=== PATIENT | male | born 1950 | race Caucasian/White ===

== ENCOUNTER → 2017-04-11 | Outpatient (CLI) | payer MEDICARE, BC ==
[2017-04-11 08:27] LABS: ALT 32 U/L (21-72); AST 24 U/L (17-59); Cholesterol 174 mg/dL (<200); Creatine Kinase 90 U/L (55-170); HDL Cholesterol 51 mg/dL (40-60); Triglycerides 141 mg/dL (<150)
== END | disposition home or self-care (01) ==
LOC: LABWHC1 07:27
PROVIDERS: ATTEND Internal Medicine Cardiovascular Disease
DX: E78.2 Mixed hyperlipidemia (principal)
CPT/HCPCS: 36415; 80061; 82550; 84450; 84460

== ENCOUNTER → 2018-04-28 | Outpatient (CLI) | payer MEDICARE, BC ==
[2018-04-28 10:33] LABS: Basophils % (A) 0 %; Eosinophils # (A) 0.2 k/uL (0-0.7); Eosinophils % (A) 3 %; HGB 16.3 gm/dL (13.0-17.5); Lymphocytes # (A) 2.3 k/uL (1.0-4.8); Lymphocytes % (A) 33 %; MCH 31.4 pg (25.0-35.0); MCHC 33.4 g/dL (31.0-37.0); MCV 94.2 fL (80.0-100.0); Monocytes # (A) 0.6 k/uL (0-1.0); Monocytes % (A) 8 %; Neutrophils # (A) 3.7 k/uL (1.3-7.7); Neutrophils % (A) 53 %; Platelet Count 191 k/uL (150-450); RDW 13.7 % (11.5-15.5); WBC 6.9 k/uL (3.8-10.6)
[2018-04-28 11:10] LABS: ALT 32 U/L (21-72); AST 29 U/L (17-59); Albumin 4.2 g/dL (3.5-5.0); Alkaline Phosphatase 111 U/L (38-126); Anion Gap 7 mmol/L; Blood Urea Nitrogen 14 mg/dL (9-20); Calcium 9.6 mg/dL (8.4-10.2); Carbon Dioxide 29 mmol/L (22-30); Chloride 110 mmol/L (98-107); Cholesterol 179 mg/dL (<200); Glucose 101 mg/dL (74-99); HDL Cholesterol 53 mg/dL (40-60); LDL Cholesterol,Calculated 103 mg/dL (0-99); Potassium 5.2 mmol/L (3.5-5.1); Sodium 146 mmol/L (137-145); Total Bilirubin 0.5 mg/dL (0.2-1.3); Total Protein 7.4 g/dL (6.3-8.2); Triglycerides 114 mg/dL (<150)
[2018-04-28 11:24] LABS: T4, Free (Free Thyroxine) 1.18 ng/dL (0.78-2.19)
[2018-04-28 11:38] LABS: Prostate Specific Antigen 7.58 ng/mL (0.00-4.00)
== END | disposition home or self-care (01) ==
LOC: LABWHC1 08:00
PROVIDERS: ATTEND Family Medicine
DX: Z00.00 Encounter for general adult medical examination without abnormal findings (principal); E78.5 Hyperlipidemia, unspecified; I10 Essential (primary) hypertension
CPT/HCPCS: 36415; 80053; 80061; 84153; 84439; 84443; 85025; 86803

== ENCOUNTER 2018-07-13 10:26 | Observation (INO) | payer MEDICARE, BC ==
--- NOTE | 2018-07-13 11:32 | ED ---
General Adult HPI - General Chief complaint: Chest Pain Stated complaint: Chest injury Time Seen by Provider: 07/13/18 11:15 Source: patient, RN notes reviewed Mode of arrival: ambulatory Limitations: no limitations - History of Present Illness Initial comments: Patient is a pleasant 68-year-old male presenting to the emergency Department with complaints of chest injury. Patient states 2 days ago he was willing a candy with an old electric range on it. Patient states while going down the steps and kind of got away from him and pulled him down. Patient states this did pull the right side of his chest. Patient states following this he did have somewhat of a fall and believes he likely struck his right chest on the range or side of the steps. Patient is having discomfort of the right lateral ribs. Discomfort does increase with deep breaths and movement. Otherwise no difficulty breathing. No other chest pain. Patient denies any concerns for heart problems. Patient denies any abdominal pain or any other area of injury. - Related Data Home Medications Medication Instructions Recorded Confirmed Aspirin 81 mg PO DAILY 12/20/14 07/13/18 Doxazosin [Cardura] 4 mg PO DAILY 12/20/14 07/13/18 Metoprolol Tartrate [Lopressor] 100 mg PO BID 12/20/14 07/13/18 Simvastatin [Zocor] 40 mg PO HS 12/20/14 07/13/18 Tamsulosin [Flomax] 0.4 mg PO BID 12/20/14 07/13/18 Warfarin [Coumadin] 1 mg PO SUTUWETHSA 12/20/14 07/13/18 amLODIPine BESYLATE/BENAZEPRIL 1 cap PO BID 12/20/14 07/13/18 [Amlodipine-Benazepril 10-20 mg] Warfarin [Coumadin] 2 mg PO MOFR 02/17/15 07/13/18 Loratadine [Claritin] 10 mg PO DAILY 07/03/16 07/13/18 Previous Rx's Medication Instructions Recorded traMADol HCl [Ultram] 50 mg PO Q6H PRN #40 tab 07/09/16 Allergies Allergy/AdvReac Type Severity Reaction Status Date / Time No Known Allergies Allergy Verified 07/13/18 11:01 Review of Systems ROS Statement: Those systems with pertinent positive or pertinent negative responses have been documented in the HPI. ROS Other: All systems not noted in ROS Statement are negative. Constitutional: Denies: fever Eyes: Denies: eye pain ENT: Denies: ear pain Respiratory: Denies: cough, dyspnea Cardiovascular: Reports: as per HPI Endocrine: Denies: fatigue Gastrointestinal: Denies: abdominal pain Genitourinary: Denies: dysuria Musculoskeletal: Denies: back pain Skin: Denies: rash Neurological: Denies: headache Past Medical History Past Medical History: Atrial Fibrillation, Blood Disorder, Coronary Artery Disease (CAD), Deep Vein Thrombosis (DVT), Hyperlipidemia, Hypertension, Myocardial Infarction ([place]), Pulmonary Embolus (PE) Additional Past Medical History / Comment(s): bilateral PE/ DVT 01/08/2012, BPH, Last Myocardial Infarction Date:: 2003 History of Any Multi-Drug Resistant Organisms: None Reported Past Surgical History: Cholecystectomy, Coronary Bypass/CABG, Heart Catheterization, Heart Catheterization With Stent, Joint Replacement, Orthopedic Surgery, Prostate Surgery Additional Past Surgical History / Comment(s): 07/08/16 total L knee arthroplasty. Other surgical hx: CABG X3, BX OF PROSTATE x 2-benign, R knee arthroscopy, COLONOSCOPY Past Anesthesia/Blood Transfusion Reactions: No Reported Reaction Date of Last Stent Placement:: 05/02/16 Past Psychological History: No Psychological Hx Reported Smoking Status: Former smoker Past Alcohol Use History: Occasional Past Drug Use History: None Reported - Past Family History Father Family Medical History: Coronary Artery Disease (CAD), Dementia, Diabetes Mellitus Additional Family Medical History / Comment(s): Father of dementia at the age of 74 yrs. Mother Family Medical History: Liver Disease Additional Family Medical History / Comment(s): Mother of biliary cirrhosis at the age of 37yrs. Sister(s) Family Medical History: Cancer General Exam Limitations: no limitations General appearance: alert, in no apparent distress Head exam: Present: atraumatic Eye exam: Present: normal appearance Neck exam: Present: normal inspection. Absent: tenderness Respiratory exam: Present: normal lung sounds bilaterally, chest wall tenderness (Right lateral chest beneath the axilla) Cardiovascular Exam: Present: regular rate, normal rhythm GI/Abdominal exam: Present: soft. Absent: distended, tenderness, guarding Extremities exam: Present: normal inspection Neurological exam: Present: alert Psychiatric exam: Present: normal affect, normal mood Skin exam: Present: normal color Course Vital Signs 10/01/18 10:31 Temperature 98.3 F Pulse Rate 73 Respiratory 22 Rate Blood Pressure 124/81 O2 Sat by Pulse 97 Oximetry - Reevaluation(s) Reevaluation #1: 07/13/18 12:17 Case was discussed with Dr. Montenegro, who will admit. He does request consult with anesthesia and pulmonary. Case was earlier discussed with radiologist. Computed tomography scan was ordered. Medical Decision Making - Radiology Data Radiology results: image reviewed (Chest x-ray does show small apical pneumothorax. Possible Colome pneumothorax at the right base. Rib fractures 5 through 8.) Disposition Clinical Impression: Traumatic pneumothorax, Rib fractures Disposition: ADMITTED IP TO THIS HOSP Is patient prescribed a controlled substance at d/c from ED?: No Referrals: Ganesh Cota Jr, DO [Primary Care Provider] - 1-2 days Decision Time: 12:18
--- NOTE | 2018-07-13 12:05 | XR ---
EXAMINATION TYPE: XR ribs RT w pa chest xray DATE OF EXAM: 07/13/2018 COMPARISON: NONE HISTORY: Pain TECHNIQUE: Single view of the chest 4 views of the ribs are submitted. FINDINGS: There are rib fractures of right ribs 5 through 8 anterolaterally. There is right-sided pneumothorax with suspected right basilar Collins pneumothorax. Lucency at the right lung base is likely related to pneumothorax rather than pneumoperitoneum. Pneumothorax estimated at approximately 15%. Right basilar infiltrate or contusion. There is evidence of cardiomegaly. Chronic and senescent parenchymal changes noted. IMPRESSION: 1. Right-sided rib fractures with right-sided pneumothorax. Discussed with the physician at the time of exam completion.
[2018-07-13] MEDS ORDERED: NALOXONE 0.4 MG/ML 1 ML VIAL IV PRN (12:18)
[2018-07-13] MEDS ORDERED: ACETAMINOPHEN TAB 325 MG TAB PO PRN (12:18)
[2018-07-13] MEDS ORDERED: IBUPROFEN 400 MG TAB PO PRN (12:18)
[2018-07-13] MEDS ORDERED: MORPHINE SULFATE 4 MG/ML SYRINGE IV PRN (12:18)
--- NOTE | 2018-07-13 12:40 | CT ---
EXAMINATION TYPE: CT chest wo con DATE OF EXAM: 07/13/2018 COMPARISON: Prior CT chest 12/31/2011, chest x-ray 07/13/2018 HISTORY: Pneumothorax, rib fracture CT DLP: 651 mGycm. Automated Exposure Control for Dose Reduction was Utilized. TECHNIQUE: CT scan of the thorax is performed without IV contrast. FINDINGS: LUNGS: Minimal right-sided pneumothorax present at the base of the right hemithorax, there is associa edmund small effusion, atelectasis. MEDIASTINUM: Lack of IV contrast is noted to limit evaluation for mediastinal and especially hilar ad enopathy. There are no definitive greater than 1 cm hilar or mediastinal lymph nodes. There are michael nary artery calcifications present. No cardiomegaly or pericardial effusion is seen. OTHER: Nondisplaced rib fractures of the right fifth through eighth ribs. Patient is post median ster notomy. IMPRESSION: Right-sided rib fractures are nondisplaced. Only minimal pneumothorax noted. Postop tabares es. Noncontrast exam.
[2018-07-13] MEDS: SODIUM CHLORIDE 0.9% 1,000 ML IV SCH ×2 (12:57→21:17)
[2018-07-13 13:21] LABS: Basophils % (A) 0 %; Eosinophils # (A) 0.2 k/uL (0-0.7); Eosinophils % (A) 2 %; HCT 47.2 % (39.0-53.0); HGB 15.1 gm/dL (13.0-17.5); Lymphocytes # (A) 1.7 k/uL (1.0-4.8); Lymphocytes % (A) 23 %; MCH 30.5 pg (25.0-35.0); MCV 95.2 fL (80.0-100.0); Mean Platelet Volume 7.7; Monocytes # (A) 0.5 k/uL (0-1.0); Monocytes % (A) 7 %; Neutrophils # (A) 4.9 k/uL (1.3-7.7); Neutrophils % (A) 67 %; Platelet Count 165 k/uL (150-450); RBC 4.96 m/uL (4.30-5.90); RDW 13.3 % (11.5-15.5); WBC 7.4 k/uL (3.8-10.6)
[2018-07-13] MEDS ORDERED: INFLUENZA VACCINE (6 MOS+) 60 MCG/0.5 ML SYRINGE IM ONE (13:25)
[2018-07-13 13:27] LABS: Anion Gap 8 mmol/L; Blood Urea Nitrogen 14 mg/dL (9-20); Calcium 9.2 mg/dL (8.4-10.2); Carbon Dioxide 26 mmol/L (22-30); Chloride 108 mmol/L (98-107); Glucose 102 mg/dL (74-99); Potassium 4.5 mmol/L (3.5-5.1); Sodium 142 mmol/L (137-145)
[2018-07-13 16:17] LABS: INR 2.4 (<1.2)
--- NOTE | 2018-07-13 16:46 | P.PAINCN ---
History of Present Illness - Reason for Consult Consult date: 07/13/18 - History of Present Illness This is a 68-year-old male who was admitted to [facility] with the complaint of right chest nondisplaced rib fractures, from T5 to T8, right- sided pneumothorax ,patient complaining of some pain which managed with IV morphine and, Ultram 50 mg every 6 hours, patient had no shortness of breath, no difficulty breathing, no discoloration, and there is no need for supplemental oxygen, oxygen saturation more than 96% on room air Past Medical History Past Medical History: Atrial Fibrillation, Coronary Artery Disease (CAD), Chest Pain / Angina, Deep Vein Thrombosis (DVT), GERD/Reflux, Hyperlipidemia, Hypertension, Myocardial Infarction ([place]), Osteoarthritis (OA), Pulmonary Embolus (PE) Additional Past Medical History / Comment(s): bilateral PE/ R leg DVT 01/08/2012 , BPH, arthritis L knee with total knee arthroplasty, sinus problems. Last Myocardial Infarction Date:: 2003 History of Any Multi-Drug Resistant Organisms: None Reported Past Surgical History: Cholecystectomy, Coronary Bypass/CABG, Heart Catheterization, Heart Catheterization With Stent, Joint Replacement, Orthopedic Surgery, Prostate Surgery Additional Past Surgical History / Comment(s): 07/08/16 total L knee arthroplasty, 2004 CABG X3, BX OF PROSTATE x 2-benign, R knee arthroscopy, COLONOSCOPY, EGD Past Anesthesia/Blood Transfusion Reactions: No Reported Reaction Date of Last Stent Placement:: 05/02/16 Smoking Status: Former smoker - Past Family History Father Family Medical History: Coronary Artery Disease (CAD), Dementia, Diabetes Mellitus Additional Family Medical History / Comment(s): Father of dementia at the age of 74 yrs. Mother Family Medical History: Liver Disease Additional Family Medical History / Comment(s): Mother of biliary liver cirrhosis at the age of 37yrs. Sister(s) Family Medical History: Cancer Medications and Allergies Home Medications Medication Instructions Recorded Confirmed Type Aspirin 81 mg PO DAILY 12/20/14 07/13/18 History Doxazosin [Cardura] 4 mg PO DAILY 12/20/14 07/13/18 History Metoprolol Tartrate [Lopressor] 100 mg PO BID 12/20/14 07/13/18 History Simvastatin [Zocor] 40 mg PO HS 12/20/14 07/13/18 History Tamsulosin [Flomax] 0.4 mg PO BID 12/20/14 07/13/18 History Warfarin [Coumadin] 1 mg PO SUTUWETHSA 12/20/14 07/13/18 History amLODIPine BESYLATE/BENAZEPRIL 1 cap PO BID 12/20/14 07/13/18 History [Amlodipine-Benazepril 10-20 mg] Warfarin [Coumadin] 2 mg PO MOFR 02/17/15 07/13/18 History Loratadine [Claritin] 10 mg PO DAILY 07/03/16 07/13/18 History traMADol HCl [Ultram] 50 mg PO Q6H PRN #40 tab 07/09/16 07/13/18 Rx Allergies Allergy/AdvReac Type Severity Reaction Status Date / Time No Known Allergies Allergy Verified 07/13/18 11:01 Physical Exam Vitals: Vital Signs Temp Pulse Pulse Resp BP BP Pulse Ox 07/13/18 16:00 64 18 07/13/18 13:39 97.6 F 64 18 141/79 96 07/13/18 13:16 98.8 F 69 18 129/65 98 07/13/18 10:31 98.3 F 73 22 124/81 97 Intake and Output 07/13/18 07/13/18 07/13/18 06:59 14:59 22:59 Other: # Voids 1 Weight 106.594 kg Physical Examinations : 1-Constitutiona : Cooperative , not in acute distress . 2-HEENT : nech ; supple , no Lymphadenopathy , normal thyroid size . eyes : no ptosis , no icterus, no photophobia . ENT : normal of hearing , normal oropharynx , no Thrush . 3- Respiratory : Chest clear to auscultations Bilaterally , no wheezing , no Rhonchi , tenderness over the right side chest wall . 4- Cardiovascular : regular rate and rhythem , S1 , S2 , no S3 , no S4. 5- Gastrointestinal : abdomen soft no tenderness , bowel sounds , no organomegally . 6- Genitourinary : Defferred . 7- neurologic : Cranial nerve II to XII intact , no focal neurological deffecit . 8-psychatric : alert , oriented X 3 , appropriate affect , intact judgment and insight . 9-Lymphatic : no Lymphadenopathy . 10- musculoskeltal : motor stregnth in the deltoid and biceps, normal right side , normal Left side Results CBC & Chem 7: 07/13/18 12:56 07/13/18 12:56 Labs: Abnormal Lab Results - Last 24 Hours (Table) 07/13/18 07/13/18 Range/Units 12:56 15:25 PT 22.0 H (9.0-12.0) sec INR 2.4 H (<1.2) Chloride 108 H (98-107) mmol/L Glucose 102 H (74-99) mg/dL Comments: Computed tomography scan of chest showed right side T5 to T8, nondisplaced rib fractures, Assessment and Plan Plan: Assessment and plan= right chest wall pain secondary to right side rib fractures from T5 to T8 Recommend continue the current dictation Ultram 50 mg every 8 hours for pain and continue morphine 4 mg every 4 hours when necessary,, patient could benefit from Lidoderm patch 5% to be applied to the chest wall painful area, Recommend discontinue Motrin, and start Celebrex because combination between Motrin on Coumadin increases, GI bleeding She is not a good candidate to have epidural analgesia ,because he is on Coumadin Time with Patient: Greater than 30 PQRS Measure Charge Sheet PQRS Narrative: Smoking Status Former smoker Do You Want the Pneumonia No Vaccine AT THIS TIME? Blood Pressure [Right Arm] 141/79 Blood Pressure 129/65 Pain Intensity [Right Chest] 4 Pain Intensity 2 Pain Scale Used Numeric (1 - 10) Scale Used Numeric (1 - 10) Home Medications: Ambulatory Orders Aspirin 81 mg PO DAILY 12/20/14 Doxazosin [Cardura] 4 mg PO DAILY 12/20/14 Metoprolol Tartrate [Lopressor] 100 mg PO BID 12/20/14 Simvastatin [Zocor] 40 mg PO HS 12/20/14 Tamsulosin [Flomax] 0.4 mg PO BID 12/20/14 Warfarin [Coumadin] 1 mg PO SUTUWETHSA 12/20/14 amLODIPine BESYLATE/BENAZEPRIL [Amlodipine-Benazepril 10-20 mg] 1 cap PO BID 07/27 Warfarin [Coumadin] 2 mg PO MOFR 02/17/15 Loratadine [Claritin] 10 mg PO DAILY 07/03/16 traMADol HCl [Ultram] 50 mg PO Q6H PRN #40 tab 07/09/16
[2018-07-13] MEDS ORDERED: LIDOCAINE 5% PATCH TOPICAL SCH (17:00)
[2018-07-13] MEDS: MELOXICAM 7.5 MG TAB PO SCH (18:11)
--- NOTE | 2018-07-13 19:34 | CONS ---
CONSULTATION DATE OF SERVICE: 07/13/2018. REASON FOR CONSULT: Multiple rib fracture, contusion and small pneumothorax on the right side. HISTORY OF PRESENTING ILLNESS: Mr. Cy Calvert is a pleasant 68-year-old male with somewhat complex past medical history. He presented with 2-day history of severe chest pain which was getting worse. Symptoms started about 48 hours ago when he was trying to move a range on a cart and taking them down the stairs and tripped. He is not really sure if the range landed on his chest or he hit the staircase, but developed severe pain, able to handle the pain until earlier this morning, eventually decided to come into the hospital for pain. He was evaluated in the emergency department with a chest x-ray and rib x-ray. He was found to have multiple rib fractures with a small right-sided pneumothorax. The rib x- rays were reviewed. The CT scan of the chest was reviewed as well, which revealed right-sided multiple rib fractures involving 5th, 6th, 7th and 8th ribs. A small pneumothorax on the right side about 15% with a small effusion. The patient is being monitored and observed on the 4th floor. The patient does have some complaint of pleuritic chest pain. PAST MEDICAL HISTORY: Significant for DVT, PE in 2011, history of coronary artery disease and CABG in early 1999. Chronic atrial fibrillation. Coronary artery disease, dyslipidemia, hypertension, hypertensive cardiovascular disease. PAST SURGICAL HISTORY: Significant for cholecystectomy, CABG, history of cardiac cath and angiogram, history of prostate biopsy, right knee arthroscopic surgery, colonoscopy, left knee arthroplasty. ALLERGIES: Include no known drug allergy. MEDICATIONS: At home include aspirin 81 mg daily. Cardura 4 mg daily. Claritin 10 mg daily. Lopressor 100 mg 3 times a day. Zocor 40 mg daily. Flomax 0.4 mg 2 times a day. Coumadin 1 mg on Friday, Friday, Friday, , and Friday and 2 mg on Friday and Friday. Amlodipine with benazepril 10/20 one tablet 2 times a day. Ultram is 50 mg 4 times a day. Current medications in the hospital include the above with Coumadin being held. The patient is on lidocaine patch along with Extra Strength Tylenol. FAMILY HISTORY AND SOCIAL HISTORY: Otherwise unremarkable and noncontributory. The patient used to smoke heavily, however, stopped several years ago. REVIEW OF SYSTEMS: DENTAL INSURANCE COORDINATOR: Denies any seizure, likely loss of consciousness, hemiparesis. CARDIORESPIRATORY: Denies any cough or sputum production. Does have some pain on the right side as noted above. Denies any hemoptysis. Denies any left-sided chest pain. GI: Otherwise unremarkable and noncontributory. MUSCULOSKELETAL/NEUROLOGICAL: Unremarkable and noncontributory. PHYSICAL EXAMINATION: On examination, most recent vitals include blood pressure is 129/65, respiratory rate 18, pulse 64, temperature 97, saturation of 96% on room air. HEENT: Atraumatic, normocephalic. Pharynx is clear. Narrow pharyngeal opening is present. NECK: Supple without lymphadenopathy, jugular venous distention or carotid bruit. LUNGS: Bilateral air entry is present without significant rales, rhonchi or rub. HEART: Regular rate rhythm. S1, S2 audible. ABDOMEN: Soft. No rebound, rigidity. EXTREMITIES: +1 pedal pulses. NEUROLOGICAL: Otherwise awake and alert. LABS: Reviewed. Medications reviewed. CBC is within normal limits. PT/INR is at therapeutic range 22 and 2.4. Chemistries also within normal limit. Chest x-ray as noted above. Multiple rib fracture on the right side. CT scan finding as noted above, significant for basal small 15% pneumothorax as well as multiple rib fractures involving 5, 6, 7 and 8th rib on the right side with a small effusion, likely reactive. IMPRESSION: 1. Status post blunt chest trauma with multiple rib fractures involving 5th, 6th, 7th and 8th rib on the right side. 2. Small 15% pneumothorax on the right side. 3. Small right-sided pleural effusion, likely reactive. 4. History of deep venous thrombosis, pulmonary embolism in the past. 5. History of coronary artery disease, status post CABG and stent placement. 6. Hypertension, hypertensive cardiovascular disease. 7. Dyslipidemia. PLAN AND RECOMMENDATION: 1. Continue deep breathing and incentive spirometry. 2. Continue pain management. 3. I will recommend to hold Coumadin for now. Monitor and observe clinical course closely. Repeat chest x-ray tomorrow. Repeat labs tomorrow. If no significant worsening of hemoglobin as well as no significant worsening effusion is seen, Coumadin can be replaced after 24-48 hours. Further recommendations pending plan of care as per clinical response of the patient. Will order labs and x-ray for tomorrow. MMODL / IJN: [id number] /
[2018-07-13] MEDS ORDERED: ATORVASTATIN 20 MG TAB PO SCH (21:00)
[2018-07-13] MEDS: TAMSULOSIN 0.4 MG CAP.ER.24H PO SCH (21:18)
[2018-07-13] MEDS: METOPROLOL TARTRATE 50 MG TAB PO SCH (21:18)
[2018-07-13] MEDS: amLODIPine 10 MG TAB PO SCH (21:18)
[2018-07-13] MEDS: FAMOTIDINE 20 MG TAB PO SCH (21:19)
[2018-07-13] MEDS: traMADol 50 MG TAB PO PRN (23:22)
[2018-07-14 06:14] VITALS: BP 138/74; PULSE 74; RESP 16; TEMP 96.8
[2018-07-14] MEDS: SODIUM CHLORIDE 0.9% 1,000 ML IV SCH ×2 (06:35→12:11)
--- NOTE | 2018-07-14 08:06 | XR ---
EXAMINATION TYPE: XR chest 1V portable DATE OF EXAM: 07/14/2018 COMPARISON: Prior chest x-ray 07/13/2018 HISTORY: Rib fractures, pneumothorax and pleural effusion TECHNIQUE: Single frontal view of the chest is obtained. FINDINGS: Rib fractures are not seen with certainty. Patient is post median sternotomy. No evident p neumothorax or sizable effusion. Cardiomediastinal silhouette, pulmonary vascularity and chloe are not significantly changed. IMPRESSION: Improvement in aeration.
--- NOTE | 2018-07-14 08:26 | P.GSHP ---
History of Present Illness H&P Date: 07/14/18 Chief Complaint: Right chest wall pain This a 68-year-old male who is taking and washed machined down the stairs at his home. The patient apparently fell. He had complaints of chest wall pain. He is worked up emergency room and half found to have a small apical pneumothorax in the right side with rib fractures of 5 through 8. Patient denies any significant abdominal or extremity pain. He is being admitted for observation of his pneumothorax and rib fractures Past Medical History Past Medical History: Atrial Fibrillation, Coronary Artery Disease (CAD), Chest Pain / Angina, Deep Vein Thrombosis (DVT), GERD/Reflux, Hyperlipidemia, Hypertension, Myocardial Infarction ([place]), Osteoarthritis (OA), Pulmonary Embolus (PE) Additional Past Medical History / Comment(s): bilateral PE/ R leg DVT 01/08/2012 , BPH, arthritis L knee with total knee arthroplasty, sinus problems. Last Myocardial Infarction Date:: 2003 History of Any Multi-Drug Resistant Organisms: None Reported Past Surgical History: Cholecystectomy, Coronary Bypass/CABG, Heart Catheterization, Heart Catheterization With Stent, Joint Replacement, Orthopedic Surgery, Prostate Surgery Additional Past Surgical History / Comment(s): 07/08/16 total L knee arthroplasty, 2004 CABG X3, BX OF PROSTATE x 2-benign, R knee arthroscopy, COLONOSCOPY, EGD Past Anesthesia/Blood Transfusion Reactions: No Reported Reaction Date of Last Stent Placement:: 05/02/16 Smoking Status: Former smoker - Past Family History Father Family Medical History: Coronary Artery Disease (CAD), Dementia, Diabetes Mellitus Additional Family Medical History / Comment(s): Father of dementia at the age of 74 yrs. Mother Family Medical History: Liver Disease Additional Family Medical History / Comment(s): Mother of biliary liver cirrhosis at the age of 37yrs. Sister(s) Family Medical History: Cancer Medications and Allergies Home Medications Medication Instructions Recorded Confirmed Type Aspirin 81 mg PO DAILY 12/20/14 07/13/18 History Doxazosin [Cardura] 4 mg PO DAILY 12/20/14 07/13/18 History Metoprolol Tartrate [Lopressor] 100 mg PO BID 12/20/14 07/13/18 History Simvastatin [Zocor] 40 mg PO HS 12/20/14 07/13/18 History Tamsulosin [Flomax] 0.4 mg PO BID 12/20/14 07/13/18 History Warfarin [Coumadin] 1 mg PO SUTUWETHSA 12/20/14 07/13/18 History amLODIPine BESYLATE/BENAZEPRIL 1 cap PO BID 12/20/14 07/13/18 History [Amlodipine-Benazepril 10-20 mg] Warfarin [Coumadin] 2 mg PO MOFR 02/17/15 07/13/18 History Loratadine [Claritin] 10 mg PO DAILY 07/03/16 07/13/18 History traMADol HCl [Ultram] 50 mg PO Q6H PRN #40 tab 07/09/16 07/13/18 Rx Allergies Allergy/AdvReac Type Severity Reaction Status Date / Time No Known Allergies Allergy Verified 07/13/18 11:01 Surgical - Exam Vital Signs Temp Pulse Resp BP Pulse Ox 98.3 F 73 22 124/81 97 07/13/18 10:31 07/13/18 10:31 07/13/18 10:31 07/13/18 10:31 07/13/18 10:31 - General well developed, well nourished, no distress, moderate distress - Eyes PERRL - ENT normal pinna - Neck no masses - Respiratory Tender right chest wall Results - Labs 07/13/18 12:56 07/13/18 12:56 Abnormal Lab Results - Last 24 Hours (Table) 07/13/18 07/13/18 Range/Units 12:56 15:25 PT 22.0 H (9.0-12.0) sec INR 2.4 H (<1.2) Chloride 108 H (98-107) mmol/L Glucose 102 H (74-99) mg/dL Diabetes panel 07/13/18 Range/Units 12:56 Sodium 142 (137-145) mmol/L Potassium 4.5 (3.5-5.1) mmol/L Chloride 108 H (98-107) mmol/L Carbon Dioxide 26 (22-30) mmol/L BUN 14 (9-20) mg/dL Creatinine 0.76 (0.66-1.25) mg/dL Glucose 102 H (74-99) mg/dL Calcium 9.2 (8.4-10.2) mg/dL Calcium panel 07/13/18 Range/Units 12:56 Calcium 9.2 (8.4-10.2) mg/dL Pituitary panel 07/13/18 Range/Units 12:56 Sodium 142 (137-145) mmol/L Potassium 4.5 (3.5-5.1) mmol/L Chloride 108 H (98-107) mmol/L Carbon Dioxide 26 (22-30) mmol/L BUN 14 (9-20) mg/dL Creatinine 0.76 (0.66-1.25) mg/dL Glucose 102 H (74-99) mg/dL Calcium 9.2 (8.4-10.2) mg/dL Adrenal panel 07/13/18 Range/Units 12:56 Sodium 142 (137-145) mmol/L Potassium 4.5 (3.5-5.1) mmol/L Chloride 108 H (98-107) mmol/L Carbon Dioxide 26 (22-30) mmol/L BUN 14 (9-20) mg/dL Creatinine 0.76 (0.66-1.25) mg/dL Glucose 102 H (74-99) mg/dL Calcium 9.2 (8.4-10.2) mg/dL - Imaging Chest x-ray: report reviewed (Right rib fractures 5 through 8. 10- 15% apical pneumothorax) Assessment and Plan Assessment: Trauma with right-sided multiple rib fractures. Patient will be observed. We will ask pulmonology in anesthesia see the patient regarding his pneumothorax and rib fractures
[2018-07-14] MEDS ORDERED: PANTOPRAZOLE 40 MG/10 ML VIAL IV SCH (09:00)
[2018-07-14] MEDS ORDERED: LORATADINE 10 MG TAB PO SCH (09:00)
[2018-07-14] MEDS ORDERED: LISINOPRIL 20 MG TAB PO SCH (09:00)
[2018-07-14] MEDS ORDERED: DOXAZOSIN 4 MG TAB PO SCH (09:00)
[2018-07-14 09:25] LABS: Basophils % (A) 1 %; Eosinophils # (A) 0.3 k/uL (0-0.7); Eosinophils % (A) 3 %; HCT 44.7 % (39.0-53.0); HGB 14.3 gm/dL (13.0-17.5); Lymphocytes # (A) 1.6 k/uL (1.0-4.8); Lymphocytes % (A) 21 %; MCH 30.6 pg (25.0-35.0); MCHC 31.9 g/dL (31.0-37.0); Monocytes # (A) 0.6 k/uL (0-1.0); Monocytes % (A) 9 %; Neutrophils # (A) 4.9 k/uL (1.3-7.7); Neutrophils % (A) 65 %; Platelet Count 173 k/uL (150-450); RBC 4.66 m/uL (4.30-5.90); RDW 13.5 % (11.5-15.5); WBC 7.5 k/uL (3.8-10.6)
[2018-07-14] MEDS: FAMOTIDINE 20 MG TAB PO SCH (09:32)
[2018-07-14] MEDS: amLODIPine 10 MG TAB PO SCH (09:32)
[2018-07-14 09:33] LABS: INR 2.2 (<1.2); Prothrombin Time 20.2 sec (9.0-12.0)
[2018-07-14] MEDS: MELOXICAM 7.5 MG TAB PO SCH (09:33)
[2018-07-14] MEDS: METOPROLOL TARTRATE 50 MG TAB PO SCH (09:33)
[2018-07-14] MEDS: traMADol 50 MG TAB PO PRN (09:34)
[2018-07-14] MEDS: TAMSULOSIN 0.4 MG CAP.ER.24H PO SCH (09:34)
[2018-07-14 09:42] LABS: ALT 25 U/L (21-72); AST 31 U/L (17-59); Albumin 3.4 g/dL (3.5-5.0); Alkaline Phosphatase 107 U/L (38-126); Anion Gap 7 mmol/L; Blood Urea Nitrogen 11 mg/dL (9-20); Calcium 8.5 mg/dL (8.4-10.2); Carbon Dioxide 26 mmol/L (22-30); Chloride 109 mmol/L (98-107); Glucose 92 mg/dL (74-99); Potassium 3.8 mmol/L (3.5-5.1); Sodium 142 mmol/L (137-145); Total Bilirubin 0.8 mg/dL (0.2-1.3); Total Protein 6.4 g/dL (6.3-8.2)
--- NOTE | 2018-07-14 10:07 | P.CONS ---
History of Present Illness - Reason for Consult Consult date: 07/14/18 Medical management Requesting physician: Rohan Montenegro - Chief Complaint right rib pain - History of Present Illness 68-year-old male who states on Friday he was moving a stove at home down the stairs but unfortunately fell down the stairs. The patient came to the emergency room due to his pain. Chest x-ray completed in the emergency room revealed rib fractures of right ribs 5 through 8. Right pneumothorax approximately 15%. CT of the chest revealed right-sided rib fractures were none displaced. Minimal pneumothorax. The patient was admitted to the hospital under the care of Dr. Montenegro. Consultations were placed to Dr. Morgan for medical management. The patient had a repeat chest x-ray done today which shows improved aeration and no evident pneumothorax. The patient states his pain is well-controlled. He does complain of pain when coughing. He has an incentive spirometer at the bedside and states he is using a 10 times an hour. Vital signs are stable. Review of Systems Those systems with pertinent positive or pertinent negative responses have been documented in the HPI Past Medical History Past Medical History: Atrial Fibrillation, Coronary Artery Disease (CAD), Chest Pain / Angina, Deep Vein Thrombosis (DVT), GERD/Reflux, Hyperlipidemia, Hypertension, Myocardial Infarction (OK), Osteoarthritis (OA), Pulmonary Embolus (PE) Additional Past Medical History / Comment(s): bilateral PE/ R leg DVT 01/08/2012 , BPH, arthritis L knee with total knee arthroplasty, sinus problems. Last Myocardial Infarction Date:: 2003 History of Any Multi-Drug Resistant Organisms: None Reported Past Surgical History: Cholecystectomy, Coronary Bypass/CABG, Heart Catheterization, Heart Catheterization With Stent, Joint Replacement, Orthopedic Surgery, Prostate Surgery Additional Past Surgical History / Comment(s): 07/08/16 total L knee arthroplasty, 2003 CABG X3, BX OF PROSTATE x 2-benign, R knee arthroscopy, COLONOSCOPY, EGD Past Anesthesia/Blood Transfusion Reactions: No Reported Reaction Date of Last Stent Placement:: 05/02/16 Smoking Status: Former smoker - Past Family History Father Family Medical History: Coronary Artery Disease (CAD), Dementia, Diabetes Mellitus Additional Family Medical History / Comment(s): Father of dementia at the age of 74 yrs. Mother Family Medical History: Liver Disease Additional Family Medical History / Comment(s): Mother of biliary liver cirrhosis at the age of 37yrs. Sister(s) Family Medical History: Cancer Medications and Allergies Home Medications Medication Instructions Recorded Confirmed Type Aspirin 81 mg PO DAILY 12/20/14 07/13/18 History Doxazosin [Cardura] 4 mg PO DAILY 12/20/14 07/13/18 History Metoprolol Tartrate [Lopressor] 100 mg PO BID 12/20/14 07/13/18 History Simvastatin [Zocor] 40 mg PO HS 12/20/14 07/13/18 History Tamsulosin [Flomax] 0.4 mg PO BID 12/20/14 07/13/18 History Warfarin [Coumadin] 1 mg PO SUTUWETHSA 12/20/14 07/13/18 History amLODIPine BESYLATE/BENAZEPRIL 1 cap PO BID 12/20/14 07/13/18 History [Amlodipine-Benazepril 10-20 mg] Warfarin [Coumadin] 2 mg PO MOFR 02/17/15 07/13/18 History Loratadine [Claritin] 10 mg PO DAILY 07/03/16 07/13/18 History traMADol HCl [Ultram] 50 mg PO Q6H PRN #40 tab 07/09/16 07/13/18 Rx Allergies Allergy/AdvReac Type Severity Reaction Status Date / Time No Known Allergies Allergy Verified 07/13/18 11:01 Physical Exam Vitals: Vital Signs Temp Pulse Pulse Resp BP BP BP 07/14/18 06:14 96.8 F L 74 16 138/74 07/13/18 23:00 98.4 F 69 18 126/59 07/13/18 16:00 64 18 07/13/18 13:39 97.6 F 64 18 141/79 07/13/18 13:16 98.8 F 69 18 129/65 07/13/18 10:31 98.3 F 73 22 124/81 Pulse Ox 07/14/18 06:14 96 07/13/18 23:00 94 L 07/13/18 16:00 07/13/18 13:39 96 07/13/18 13:16 98 07/13/18 10:31 97 Intake and Output 07/13/18 07/14/18 07/14/18 22:59 06:59 14:59 Intake Total 320 Output Total 550 Balance -550 320 Intake: Oral 320 Output: Urine 550 Other: # Voids 1 GENERAL: This is a 68-year-old male in no apparent distress at the time of examination. Pleasant and cooperative. HEENT: Head is atraumatic, normocephalic. Pupils are equal, round, and reactive to light. Sclerae anicteric. Conjunctivae are clear. Mucus membranes of the mouth are moist. Neck is supple. RESPIRATORY: Clear to ausculation. No wheezes, rales, or rhonchi. No use of accessory muscles. Patient maintaining oxygen saturation greater than 92%. Increased pain with coughing noted. Lidoderm patch to right lateral chest wall CARDIOVASCULAR: S1 and S2 noted. No systolic or diastolic murmur auscultated. No JVD noted. No S3 or S4 noted. GASTROINTESTINAL: No distention noted. Abdomen soft and round. Normal active bowel sounds auscultated x 4 quadrants. No pain or tenderness noted upon palpation. INTEGUMENTARY: No cyanosis. No jaundice. No rashes noted. No cellulitis noted. EXTREMITIES: 2+ peripheral pulses. No evidence of peripheral edema. No calf tenderness noted. NEUROLOGIC: Cranial nerves II-XII intact. PSYCHIATRIC: Awake, alert, and oriented X 3. Appropriate affect. Intact judgement and insight. Results CBC & Chem 7: 07/14/18 08:12 07/14/18 08:12 Labs: Abnormal Lab Results - Last 24 Hours (Table) 07/13/18 07/13/18 07/14/18 Range/Units 12:56 15:25 08:12 PT 22.0 H 20.2 H (9.0-12.0) sec INR 2.4 H 2.2 H (<1.2) Chloride 108 H (98-107) mmol/L Glucose 102 H (74-99) mg/dL Albumin (3.5-5.0) g/dL 07/14/18 Range/Units 08:12 PT (9.0-12.0) sec INR (<1.2) Chloride 109 H (98-107) mmol/L Glucose (74-99) mg/dL Albumin 3.4 L (3.5-5.0) g/dL Assessment and Plan Plan: ASSESSMENT: Right rib fractures 5-8 with 15% pneumothorax, status post fall Coronary artery disease with previous CABG History of atrial fibrillation, maintained on long-term anticoagulation with Coumadin Hypertension Hyperlipidemia Obesity: BMI 34.7 PLAN: Continue management per Dr. Montenegro Incentive spirometer 10 times hour while awake Decrease IV fluid to 50 mL an hour Activity as tolerated Home meds as appropriate Monitor labs Monitor vital signs and address as appropriate Resume Coumadin tonight if okay with attending physician Thank you for this consultation We will continue to follow with Cy during his hospitalization Nurse practitioner note has been reviewed by physician. Signing provider agrees with the documented findings, assessment, and plan of care.
--- NOTE | 2018-07-14 10:19 | P.PN ---
Subjective Progress Note Date: 07/14/18 Principal diagnosis: Right-sided small pneumothorax, right pleural effusion likely reactive, multiple rib fracture involving right-sided fifth sixth seventh and eighth rib, pulmonary contusion, history of DVT and PE on anticoagulation with Coumadin, coronary artery disease, 07/14/2018, patient seen eval examined during the rounds clinically patient has been doing relatively better able to get up and move around is still S some pain on the right side but severity has improved significantly labs reviewed medications reviewed radiographic studies reviewed as well, patient's remains well anticoagulated with INR of 2.2 in therapeutic range, white cell count stable hemoglobin remains stable a small decline of 1 g noted, chest x-ray remains stable no significant pneumothorax or effusion noted Objective - Vital Signs Vital signs: Vital Signs Temp 96.8 F L 07/14/18 06:14 Pulse 74 07/14/18 06:14 Resp 16 07/14/18 06:14 BP 138/74 07/14/18 06:14 Pulse Ox 96 07/14/18 06:14 Intake & Output 07/13/18 07/14/18 07/14/18 18:59 06:59 18:59 Intake Total 320 Output Total 550 Balance -550 320 Weight 106.594 kg Intake: Oral 320 Output: Urine 550 Other: # Voids 2 1 - Exam GENERAL: This is a 68-year-old male in no apparent distress at the time of examination. Pleasant and cooperative. Patient walking in the hallway and room with the support of pole with minimal pain on the right side HEENT: Head is atraumatic, normocephalic. Pupils are equal, round, and reactive to light. Sclerae anicteric. Conjunctivae are clear. Mucus membranes of the mouth are moist. Neck is supple. RESPIRATORY: Clear to ausculation. No wheezes, rales, or rhonchi. No use of accessory muscles. Patient maintaining oxygen saturation greater than 92%. Increased pain with coughing noted. Lidoderm patch to right lateral chest wall CARDIOVASCULAR: S1 and S2 noted. No systolic or diastolic murmur auscultated. No JVD noted. No S3 or S4 noted. GASTROINTESTINAL: No distention noted. Abdomen soft and round. Normal active bowel sounds auscultated x 4 quadrants. No pain or tenderness noted upon palpation. INTEGUMENTARY: No cyanosis. No jaundice. No rashes noted. No cellulitis noted. EXTREMITIES: 2+ peripheral pulses. No evidence of peripheral edema. No calf tenderness noted. NEUROLOGIC: Cranial nerves II-XII intact. PSYCHIATRIC: Awake, alert, and oriented X 3. Appropriate affect. Intact judgement and insight. - Labs CBC & Chem 7: 07/14/18 08:12 07/14/18 08:12 Labs: Abnormal Lab Results - Last 24 Hours (Table) 07/13/18 07/13/18 07/14/18 Range/Units 12:56 15:25 08:12 PT 22.0 H 20.2 H (9.0-12.0) sec INR 2.4 H 2.2 H (<1.2) Chloride 108 H (98-107) mmol/L Glucose 102 H (74-99) mg/dL Albumin (3.5-5.0) g/dL 07/14/18 Range/Units 08:12 PT (9.0-12.0) sec INR (<1.2) Chloride 109 H (98-107) mmol/L Glucose (74-99) mg/dL Albumin 3.4 L (3.5-5.0) g/dL Assessment and Plan Assessment: Blunt chest trauma with pulmonary contusion Reactive right-sided is small pleural effusion Small pneumothorax on the right side Multiple rib fracture related to blunt chest trauma involving face 6/7 and eighth right sided ribs History of DVT/PE on anticoagulation with Coumadin blood is well anticoagulated History of coronary artery disease status post CABG Hypertension hypertensive cardiovascular disease Plan: Continue deep breathing exercises incentive spirometry Increase activity as tolerated If patient remains stable possible discharge in next 24 hours after repeat CBC and chest x-ray tomorrow Would recommend to continue to hold Coumadin for one more day as the INR isn't therapeutic range and no evidence of active bleeding has been noted Time with Patient: Greater than 30
--- NOTE | 2018-07-14 12:01 | P.PN ---
Subjective Progress Note Date: 07/14/18 68-year-old male seen at the bedside this morning sitting up in bed patient states he feels 100% better today than yesterday. Less right side rib pain. Able to use the incentive spirometer can achieve 1500. Pleasant cooperative states the pain medication effective for pain control INR this morning 2.2 white count 7.5 hemoglobin 14.3 electrolytes within normal limits pulse ox sat on room air 94-96% Patient initially was seen in the emergency room after the patient apparently fell taking a wash machine down the stairs at his home. Patient stated he had chest wall pain came into the emergency room to be evaluated was found to have a small apical pneumothorax with rib fractures 5 through 8. Patient does have a history of atrial fibrillation on anticoagulation, as well as coronary artery bypass grafting Objective - Vital Signs Vital signs: Vital Signs Temp 96.8 F L 07/14/18 06:14 Pulse 74 07/14/18 06:14 Resp 16 07/14/18 06:14 BP 138/74 07/14/18 06:14 Pulse Ox 96 07/14/18 06:14 Intake & Output 07/13/18 07/14/18 07/14/18 18:59 06:59 18:59 Intake Total 320 Output Total 550 Balance -550 320 Weight 106.594 kg Intake: Oral 320 Output: Urine 550 Other: # Voids 2 1 - Exam Physical exam 68-year-old male sitting up in bed appears in no acute distress Lungs right fine crackles at the bases no wheezing no shortness of breath no cough continues the IS achieving 1500 states less short of breath today less right-sided rib pain Heart S1-S2 audible irregular Abdomen soft nontender no nausea no vomiting Extremities no edema noted - Labs CBC & Chem 7: 07/14/18 08:12 07/14/18 08:12 Labs: Abnormal Lab Results - Last 24 Hours (Table) 07/13/18 07/13/18 07/14/18 Range/Units 12:56 15:25 08:12 PT 22.0 H 20.2 H (9.0-12.0) sec INR 2.4 H 2.2 H (<1.2) Chloride 108 H (98-107) mmol/L Glucose 102 H (74-99) mg/dL Albumin (3.5-5.0) g/dL 10/02/18 Range/Units 08:12 PT (9.0-12.0) sec INR (<1.2) Chloride 109 H (98-107) mmol/L Glucose (74-99) mg/dL Albumin 3.4 L (3.5-5.0) g/dL Assessment and Plan Assessment: Impression , Trauma with right side multiple rib fractures 5 through 8 status post fall Chest x-ray shows 15% apical pneumothorax present on admission History of atrial fibrillation on anticoagulation Coumadin therapeutic INR 2.2 History of coronary artery disease with prior coronary artery bypass grafting with coronary stents Plan Continue recommendations by pulmonary service Defer to medicine to address medical issues Pain control DVT and GI prophylaxis Home meds as appropriate Encourage use of incentive spirometer Home meds as appropriate Will follow with further clinical recommendations
--- NOTE | 2018-07-14 13:03 | P.PN ---
Progress Note - Text Progress Note Date: 07/14/18 The patient is resting comfortably in his bed. He states he has minimal chest wall pain. His chest x-ray shows resolution of the withdrawn. On exam is lesser stable. His abdomen soft. Patiently discharged home today he'll follow myself in 1 week.
--- NOTE | 2018-07-14 13:06 | P.DS ---
Providers Date of admission: 07/13/18 12:18 Expected date of discharge: 07/14/18 Attending physician: Rohan Montenegro Consults: 07/13/18 12:19 Consult Physician Urgent Consulting Provider: Shahriar Aguila Consult Reason/Comments: Treatment with thorax, rib fractures Do you want consulting provider notified?: Yes Consult Physician Urgent Consulting Provider: Aurelio Linares Consult Reason/Comments: Rib fractures, possible block Do you want consulting provider notified?: Yes 07/13/18 14:57 Consult Physician Urgent Consulting Provider: Ganesh Cota Jr Consult Reason/Comments: medical management Do you want consulting provider notified?: Yes Primary care physician: [facility] Course: This is a 68-year-old male who sustained multiple right rib fractures after falling while moving a washing machine his home. Patient also had a small pneumothorax on admission. Patient was possible. His pneumothoraces resolved. Patient had good pain control. He was discharged home. Please see chart for details. Patient Condition at Discharge: Good Plan - Discharge Summary Discharge Rx Participant: No New Discharge Prescriptions: New Docusate [Colace] 100 mg PO BID #20 capsule HYDROcodone/APAP 7.5-325MG [[place] 7.5-325] 1 tab PO Q4H PRN 3 Days #18 tab PRN Reason: Pain No Action Warfarin [Coumadin] 1 mg PO SUTUWETHSA amLODIPine BESYLATE/BENAZEPRIL [Amlodipine-Benazepril 10-20 mg] 1 cap PO BID Tamsulosin [Flomax] 0.4 mg PO BID Simvastatin [Zocor] 40 mg PO HS Doxazosin [Cardura] 4 mg PO DAILY Metoprolol Tartrate [Lopressor] 100 mg PO BID Aspirin 81 mg PO DAILY Warfarin [Coumadin] 2 mg PO MOFR Loratadine [Claritin] 10 mg PO DAILY traMADol HCl [Ultram] 50 mg PO Q6H PRN #40 tab PRN Reason: Pain Discharge Medication List Aspirin 81 mg PO DAILY 12/20/14 [History] Doxazosin [Cardura] 4 mg PO DAILY 12/20/14 [History] Metoprolol Tartrate [Lopressor] 100 mg PO BID 12/20/14 [History] Simvastatin [Zocor] 40 mg PO HS 12/20/14 [History] Tamsulosin [Flomax] 0.4 mg PO BID 12/20/14 [History] Warfarin [Coumadin] 1 mg PO SUTUWETHSA 12/20/14 [History] amLODIPine BESYLATE/BENAZEPRIL [Amlodipine-Benazepril 10-20 mg] 1 cap PO BID 07/27 [History] Warfarin [Coumadin] 2 mg PO MOFR 02/17/15 [History] Loratadine [Claritin] 10 mg PO DAILY 07/03/16 [History] traMADol HCl [Ultram] 50 mg PO Q6H PRN #40 tab 07/09/16 [Rx] Docusate [Colace] 100 mg PO BID #20 capsule 07/14/18 [Rx] HYDROcodone/APAP 7.5-325MG [[place] 7.5-325] 1 tab PO Q4H PRN 3 Days #18 tab 07/14 [Rx] Follow up Appointment(s)/Referral(s): Ganesh Cota Jr, [Primary Care Provider] - 1-2 days Shahriar Aguila MD [STAFF PHYSICIAN] - 1 Week Rohan Montenegro MD [STAFF PHYSICIAN] - 1 Week
[2018-07-15] MEDS ORDERED: PANTOPRAZOLE 40 MG TABLET PO SCH (09:00)
== END 2018-07-14 14:11 | disposition home or self-care (01) ==
LOC: EC 10:26 → 4MS4W 12:18
PROVIDERS: ADMIT Surgery; ATTEND Surgery
DX: S22.41XA Multiple fractures of ribs, right side, initial encounter for closed fracture (principal); S27.0XXA Traumatic pneumothorax, initial encounter; I25.10 Atherosclerotic heart disease of native coronary artery without angina pectoris; I48.2 Chronic atrial fibrillation; K21.9 Gastro-esophageal reflux disease without esophagitis; M17.12 Unilateral primary osteoarthritis, left knee; J90 Pleural effusion, not elsewhere classified; E78.5 Hyperlipidemia, unspecified; I11.9 Hypertensive heart disease without heart failure; I25.2 Old myocardial infarction; N40.0 Benign prostatic hyperplasia without lower urinary tract symptoms; Z79.82 Long term (current) use of aspirin; Z79.01 Long term (current) use of anticoagulants; Z79.899 Other long term (current) drug therapy; Z86.718 Personal history of other venous thrombosis and embolism; Z86.711 Personal history of pulmonary embolism; Z95.1 Presence of aortocoronary bypass graft; Z90.49 Acquired absence of other specified parts of digestive tract; Z95.5 Presence of coronary angioplasty implant and graft; Z87.891 Personal history of nicotine dependence; Z83.3 Family history of diabetes mellitus; Z83.79 Family history of other diseases of the digestive system; Z81.8 Family history of other mental and behavioral disorders; Z80.9 Family history of malignant neoplasm, unspecified; W10.9XXA Fall (on) (from) unspecified stairs and steps, initial encounter; Y93.E9 Activity, other interior property and clothing maintenance; Y92.009 Unspecified place in unspecified non-institutional (private) residence as the place of occurrence of the external cause; Z68.34 Body mass index [BMI] 34.0-34.9, adult; E66.9 Obesity, unspecified; S27.329A Contusion of lung, unspecified, initial encounter; Z23 Encounter for immunization
CPT/HCPCS: 99285; 96374; 80053; 80048; 85025 ×2; 85610 ×2; 71101; 71045; 71250; G0378 ×2; C9113

== ENCOUNTER → 2018-08-13 | Outpatient (CLI) | payer MEDICARE, BC ==
--- NOTE | 2018-08-13 09:10 | XR ---
EXAMINATION TYPE: XR chest 2V DATE OF EXAM: 08/13/2018 COMPARISON: 07-30 TECHNIQUE: PA and lateral views submitted. HISTORY: Pneumothorax FINDINGS: The lungs are clear and there is no pneumothorax, pleural effusion, or focal pneumonia. Multiple ri ght-sided rib deformities are seen with surgical change overlying the mediastinum. Arthropathy should ers. Atherosclerotic change aorta. IMPRESSION: 1. No acute process.
== END | disposition home or self-care (01) ==
LOC: RADXRMAIN 08:45
PROVIDERS: ATTEND Internal Medicine Sleep Medicine
DX: J93.83 Other pneumothorax (principal)
CPT/HCPCS: 71046

== ENCOUNTER → 2019-03-01 | Outpatient (CLI) | payer MEDICARE, BC | END | disposition home or self-care (01) | LOC: LABWHC1 07:41 | PROVIDERS: ATTEND Urology | DX: R97.20 Elevated prostate specific antigen [PSA] (principal) | CPT/HCPCS: 36415; 84153 ==

== ENCOUNTER 2019-03-10 21:23 | Emergency (ER) | payer MEDICARE, BC ==
[2019-03-10] MEDS ORDERED: SODIUM CHLORIDE 0.9% 1,000 ML IV STA (21:27)
--- NOTE | 2019-03-10 21:36 | ED ---
General Adult HPI - General Stated complaint: Fall Time Seen by Provider: 03/10/19 21:23 Source: RN notes reviewed - History of Present Illness Initial comments: This is a 68-year-old male who presents emergency Department combative and incoherent and not oriented at all. According to EMS family states he fell down about 6 stairs last night and was found at the bottom of the stairs he eventually got to bed and has been unresponsive and flailing occasionally since plan. He fell last night at 7 PM. According to EMS the patient is on Coumadin for some heart problem. No family is here currently patient is unable to give any further history at this time. Patient appeared to have some blood in the right ear and the naris. We're unable to obtain any further history and a family shows up we will get more history at that time - Related Data Home Medications Medication Instructions Recorded Confirmed Aspirin 81 mg PO DAILY 12/20/14 03/10/19 Doxazosin [Cardura] 4 mg PO DAILY 12/20/14 03/10/19 Metoprolol Tartrate [Lopressor] 100 mg PO BID 12/20/14 03/10/19 Simvastatin [Zocor] 40 mg PO DAILY 12/20/14 03/10/19 Tamsulosin [Flomax] 0.8 mg PO DAILY 12/20/14 03/10/19 Warfarin [Coumadin] 1 mg PO SUTUWETHSA 12/20/14 03/10/19 amLODIPine BESYLATE/BENAZEPRIL 1 cap PO BID 12/20/14 03/10/19 [Amlodipine-Benazepril 10-20 mg] Warfarin [Coumadin] 2 mg PO MOFR 02/17/15 03/10/19 Loratadine [Claritin] 10 mg PO DAILY 07/03/16 03/10/19 Fluticasone Nasal [place] [Flonase 2 spr EA NOSTRIL DAILY 03/10/19 03/10/19 Nasal [place]] Montelukast [Singulair] 10 mg PO DAILY 03/10/19 03/10/19 Allergies Allergy/AdvReac Type Severity Reaction Status Date / Time No Known Allergies Allergy Verified 03/10/19 21:36 Review of Systems ROS Statement: Those systems with pertinent positive or pertinent negative responses have been documented in the HPI. ROS Other: All systems not noted in ROS Statement are negative. Past Medical History Past Medical History: Atrial Fibrillation, Coronary Artery Disease (CAD), Chest Pain / Angina, Deep Vein Thrombosis (DVT), GERD/Reflux, Hyperlipidemia, Hypertension, Myocardial Infarction (MS), Osteoarthritis (OA), Pulmonary Embolus (PE) Additional Past Medical History / Comment(s): bilateral PE/ R leg DVT 01/08/2012, BPH, arthritis L knee with total knee arthroplasty, sinus problems. Last Myocardial Infarction Date:: 2003 History of Any Multi-Drug Resistant Organisms: None Reported Past Surgical History: Cholecystectomy, Coronary Bypass/CABG, Heart Catheterization, Heart Catheterization With Stent, Joint Replacement, Orthopedic Surgery, Prostate Surgery Additional Past Surgical History / Comment(s): 07/08/16 total L knee arthroplasty, 2004 CABG X3, BX OF PROSTATE x 2-benign, R knee arthroscopy, COLONOSCOPY, EGD Past Anesthesia/Blood Transfusion Reactions: No Reported Reaction Date of Last Stent Placement:: 05/02/16 Smoking Status: Former smoker - Past Family History Father Family Medical History: Coronary Artery Disease (CAD), Dementia, Diabetes Mellitus Additional Family Medical History / Comment(s): Father of dementia at the age of 74 yrs. Mother Family Medical History: Liver Disease Additional Family Medical History / Comment(s): Mother of biliary liver cirrhosis at the age of 37yrs. Sister(s) Family Medical History: Cancer General Exam - General Exam Comments Initial Comments: GENERAL: Patient is well-developed and well-nourished. Patient is combative and not oriented at all ENT: Neck is soft and supple. No significant lymphadenopathy is noted. Oropharynx is clear. Moist mucous membranes. Patient is flailing around moving his neck all over the place until we placed a c-collar on him EYES: The sclera were anicteric and conjunctiva were pink and moist. Cannot assess extraocular motion however the pupils do appear to be about 1 mm each. Eyelids were unremarkable. PULMONARY: Unlabored respirations. Good breath sounds bilaterally. No audible rales rhonchi or wheezing was noted. CARDIOVASCULAR: There is a regular rate and rhythm without any murmurs gallops or rubs. ABDOMEN: Soft and nontender with normal bowel sounds. SKIN: Skin is clear with no lesions or rashes and otherwise unremarkable. NEUROLOGIC: Patient is not alert or oriented. MUSCULOSKELETAL: Normal extremities with adequate strength and full range of motion. Unable to follow commands to move her emotions but he is flailing and does appear to move all 4 extremities fully LYMPHATICS: No significant lymphadenopathy is noted PSYCHIATRIC: Normal psychiatric evaluation. Course Vital Signs 03/10/19 21:27 Temperature 97.3 F L Pulse Rate 135 H Respiratory 20 Rate Blood Pressure 139/89 O2 Sat by Pulse 96 Oximetry Procedures - Intubation Sedative: Versed Paralytic: Succinylcholine Laryngoscope: [place] Size: 3 ET Tube Size: 8 ET Tube Uncuffed: No Tube Secured Location: teeth Tube Placement Confirmation: visualized tube passing through cords, equal breath sounds bilaterally, no breath sounds over epigastrium, confirmation by capnometry Intubation Complications: none Medical Decision Making - Medical Decision Making EKG shows sinus tachycardia at 107 bpm KS interval 150 QRS 106 Q-T intervals 340 QTC is 464. Patient's EKG shows no ST segment elevation or depression. Computed tomography scan of the brain shows intraparenchymal bleeds bilaterally in the frontal and temporal lobes more prominent on the left patient also has a subarachnoid bleed as well as a subdural bleed. Patient has no skull fractures are noted. Patient's C-spine is grossly normal however there is a lot of motion artifact. Chest x-ray showed widened mediastinum however on the CT of the chest it is grossly normal as well as a CT of the abdomen pelvis is grossly no rmal. I gave the patient vitamin K as well as fresh frozen plasma I also gave the patient some protonic secondary to the fact that it appeared he was having blood from the NG tube. I also gave the patient a dose of Keppra. I spoke with [facility] ER doctor Dr. Conn he agreed to accept the patient I will arrange transfer. - Lab Data Result diagrams: 03/10/19 21:35 03/10/19 21:35 Lab Results 03/10/19 03/10/19 03/10/19 Range/Units 21:34 21:35 21:35 WBC 13.6 H (3.8-10.6) k/uL RBC 4.85 (4.30-5.90) m/uL Hgb 14.8 (13.0-17.5) gm/dL Hct 45.3 (39.0-53.0) % MCV 93.3 (80.0-100.0) fL MCH 30.5 (25.0-35.0) pg MCHC 32.7 (31.0-37.0) g/dL RDW 13.6 (11.5-15.5) % Plt Count 173 (150-450) k/uL Neutrophils % 82 % Lymphocytes % 11 % Monocytes % 6 % Eosinophils % 0 % Basophils % 0 % Neutrophils # 11.1 H (1.3-7.7) k/uL Lymphocytes # 1.5 (1.0-4.8) k/uL Monocytes # 0.8 (0-1.0) k/uL Eosinophils # 0.1 (0-0.7) k/uL Basophils # 0.0 (0-0.2) k/uL PT (9.0-12.0) sec INR (<1.2) APTT (22.0-30.0) sec Sample Site ABG pH (7.35-7.45) ABG pCO2 (35-45) mmHg ABG pO2 (83-108) mmHg ABG HCO3 (21-25) mmol/L ABG Total CO2 (19-24) mmol/L ABG O2 Saturation (94-97) % ABG Base Excess mmol/L Marco Test FiO2 % Sodium 138 (137-145) mmol/L Potassium 4.0 (3.5-5.1) mmol/L Chloride 105 (98-107) mmol/L Carbon Dioxide 17 L (22-30) mmol/L Anion Gap 16 mmol/L BUN 17 (9-20) mg/dL Creatinine 0.78 (0.66-1.25) mg/dL Est GFR (CKD-EPI)AfAm >90 (>60 ml/min/1.73 sqM) Est GFR (CKD-EPI)NonAf >90 (>60 ml/min/1.73 sqM) Glucose 139 H (74-99) mg/dL POC Glucose (mg/dL) 133 H (75-99) mg/dL POC Glu Block Greaser ID Don Daily Plasma Lactic Acid Howard (0.7-2.0) mmol/L Calcium 9.2 (8.4-10.2) mg/dL Total Bilirubin 1.1 (0.2-1.3) mg/dL AST 38 (17-59) U/L ALT 20 L (21-72) U/L Alkaline Phosphatase 118 (38-126) U/L Total Creatine Kinase (55-170) U/L CK-MB (CK-2) (0.0-2.4) ng/mL CK-MB (CK-2) Rel Index Troponin I (0.000-0.034) ng/mL Total Protein 7.3 (6.3-8.2) g/dL Albumin 4.2 (3.5-5.0) g/dL Amylase 43 (30-110) U/L Lipase 76 (23-300) U/L Urine Color Urine Appearance (Clear) Urine pH (5.0-8.0) Ur Specific [place] (1.001-1.035) Urine Protein (Negative) Urine Glucose (UA) (Negative) Urine Ketones (Negative) Urine Blood (Negative) Urine Nitrite (Negative) Urine Bilirubin (Negative) Urine Urobilinogen (<2.0) mg/dL Ur Leukocyte Esterase (Negative) Urine RBC (0-5) /hpf Urine WBC (0-5) /hpf Urine Mucus (None) /hpf Urine Opiates Screen (NotDetected) Ur Oxycodone Screen (NotDetected) Urine Methadone Screen (NotDetected) Ur Propoxyphene Screen (NotDetected) Ur Barbiturates Screen (NotDetected) U Tricyclic Antidepress (NotDetected) Ur Phencyclidine Scrn (NotDetected) Ur Amphetamines Screen (NotDetected) U Methamphetamines Scrn (NotDetected) U Benzodiazepines Scrn (NotDetected) Urine Cocaine Screen (NotDetected) U Marijuana (THC) Screen (NotDetected) Serum Alcohol <10 mg/dL Blood Type Blood Type Recheck Antibody Screen Transfuse Plasma Spec Expiration Date 03/10/19 03/10/19 03/10/19 Range/Units 21:35 21:35 21:35 WBC (3.8-10.6) k/uL RBC (4.30-5.90) m/uL Hgb (13.0-17.5) gm/dL Hct (39.0-53.0) % MCV (80.0-100.0) fL MCH (25.0-35.0) pg MCHC (31.0-37.0) g/dL RDW (11.5-15.5) % Plt Count (150-450) k/uL Neutrophils % % Lymphocytes % % Monocytes % % Eosinophils % % Basophils % % Neutrophils # (1.3-7.7) k/uL Lymphocytes # (1.0-4.8) k/uL Monocytes # (0-1.0) k/uL Eosinophils # (0-0.7) k/uL Basophils # (0-0.2) k/uL PT 21.7 H (9.0-12.0) sec INR 2.2 H (<1.2) APTT 31.6 H (22.0-30.0) sec Sample Site ABG pH (7.35-7.45) ABG pCO2 (35-45) mmHg ABG pO2 (83-108) mmHg ABG HCO3 (21-25) mmol/L ABG Total CO2 (19-24) mmol/L ABG O2 Saturation (94-97) % ABG Base Excess mmol/L Marco Test FiO2 % Sodium (137-145) mmol/L Potassium (3.5-5.1) mmol/L Chloride (98-107) mmol/L Carbon Dioxide (22-30) mmol/L Anion Gap mmol/L BUN (9-20) mg/dL Creatinine (0.66-1.25) mg/dL Est GFR (CKD-EPI)AfAm (>60 ml/min/1.73 sqM) Est GFR (CKD-EPI)NonAf (>60 ml/min/1.73 sqM) Glucose (74-99) mg/dL POC Glucose (mg/dL) (75-99) mg/dL POC Glu Block Greaser ID Plasma Lactic Acid Howard 5.6 H* (0.7-2.0) mmol/L Calcium (8.4-10.2) mg/dL Total Bilirubin (0.2-1.3) mg/dL AST (17-59) U/L ALT (21-72) U/L Alkaline Phosphatase (38-126) U/L Total Creatine Kinase 416 H (55-170) U/L CK-MB (CK-2) 1.6 (0.0-2.4) ng/mL CK-MB (CK-2) Rel Index 0.4 Troponin I 0.036 H* (0.000-0.034) ng/mL Total Protein (6.3-8.2) g/dL Albumin (3.5-5.0) g/dL Amylase (30-110) U/L Lipase (23-300) U/L Urine Color Urine Appearance (Clear) Urine pH (5.0-8.0) Ur Specific [place] (1.001-1.035) Urine Protein (Negative) Urine Glucose (UA) (Negative) Urine Ketones (Negative) Urine Blood (Negative) Urine Nitrite (Negative) Urine Bilirubin (Negative) Urine Urobilinogen (<2.0) mg/dL Ur Leukocyte Esterase (Negative) Urine RBC (0-5) /hpf Urine WBC (0-5) /hpf Urine Mucus (None) /hpf Urine Opiates Screen (NotDetected) Ur Oxycodone Screen (NotDetected) Urine Methadone Screen (NotDetected) Ur Propoxyphene Screen (NotDetected) Ur Barbiturates Screen (NotDetected) U Tricyclic Antidepress (NotDetected) Ur Phencyclidine Scrn (NotDetected) Ur Amphetamines Screen (NotDetected) U Methamphetamines Scrn (NotDetected) U Benzodiazepines Scrn (NotDetected) Urine Cocaine Screen (NotDetected) U Marijuana (THC) Screen (NotDetected) Serum Alcohol mg/dL Blood Type Blood Type Recheck Antibody Screen Transfuse Plasma Spec Expiration Date 03/10/19 03/10/19 03/10/19 Range/Units 21:35 21:35 22:17 WBC (3.8-10.6) k/uL RBC (4.30-5.90) m/uL Hgb (13.0-17.5) gm/dL Hct (39.0-53.0) % MCV (80.0-100.0) fL MCH (25.0-35.0) pg MCHC (31.0-37.0) g/dL RDW (11.5-15.5) % Plt Count (150-450) k/uL Neutrophils % % Lymphocytes % % Monocytes % % Eosinophils % % Basophils % % Neutrophils # (1.3-7.7) k/uL Lymphocytes # (1.0-4.8) k/uL Monocytes # (0-1.0) k/uL Eosinophils # (0-0.7) k/uL Basophils # (0-0.2) k/uL PT (9.0-12.0) sec INR (<1.2) APTT (22.0-30.0) sec Sample Site ABG pH (7.35-7.45) ABG pCO2 (35-45) mmHg ABG pO2 (83-108) mmHg ABG HCO3 (21-25) mmol/L ABG Total CO2 (19-24) mmol/L ABG O2 Saturation (94-97) % ABG Base Excess mmol/L Marco Test FiO2 % Sodium (137-145) mmol/L Potassium (3.5-5.1) mmol/L Chloride (98-107) mmol/L Carbon Dioxide (22-30) mmol/L Anion Gap mmol/L BUN (9-20) mg/dL Creatinine (0.66-1.25) mg/dL Est GFR (CKD-EPI)AfAm (>60 ml/min/1.73 sqM) Est GFR (CKD-EPI)NonAf (>60 ml/min/1.73 sqM) Glucose (74-99) mg/dL POC Glucose (mg/dL) (75-99) mg/dL POC Glu Block Greaser ID Plasma Lactic Acid Howard (0.7-2.0) mmol/L Calcium (8.4-10.2) mg/dL Total Bilirubin (0.2-1.3) mg/dL AST (17-59) U/L ALT (21-72) U/L Alkaline Phosphatase (38-126) U/L Total Creatine Kinase (55-170) U/L CK-MB (CK-2) (0.0-2.4) ng/mL CK-MB (CK-2) Rel Index Troponin I (0.000-0.034) ng/mL Total Protein (6.3-8.2) g/dL Albumin (3.5-5.0) g/dL Amylase (30-110) U/L Lipase (23-300) U/L Urine Color Yellow Urine Appearance Clear (Clear) Urine pH 5.5 (5.0-8.0) Ur Specific [place] 1.025 (1.001-1.035) Urine Protein Trace H (Negative) Urine Glucose (UA) Trace H (Negative) Urine Ketones 2+ H (Negative) Urine Blood Small H (Negative) Urine Nitrite Negative (Negative) Urine Bilirubin Negative (Negative) Urine Urobilinogen <2.0 (<2.0) mg/dL Ur Leukocyte Esterase Negative (Negative) Urine RBC 4 (0-5) /hpf Urine WBC 1 (0-5) /hpf Urine Mucus Rare H (None) /hpf Urine Opiates Screen Not Detected (NotDetected) Ur Oxycodone Screen Not Detected (NotDetected) Urine Methadone Screen Not Detected (NotDetected) Ur Propoxyphene Screen Not Detected (NotDetected) Ur Barbiturates Screen Not Detected (NotDetected) U Tricyclic Antidepress Not Detected (NotDetected) Ur Phencyclidine Scrn Not Detected (NotDetected) Ur Amphetamines Screen Not Detected (NotDetected) U Methamphetamines Scrn Not Detected (NotDetected) U Benzodiazepines Scrn Not Detected (NotDetected) Urine Cocaine Screen Not Detected (NotDetected) U Marijuana (THC) Screen Detected H (NotDetected) Serum Alcohol mg/dL Blood Type O Positive Blood Type Recheck No Antibody Screen NEGATIVE Transfuse Plasma 03/10/2019 Spec Expiration Date 03/13/2019233403/10/19 Range/Units 22:49 WBC (3.8-10.6) k/uL RBC (4.30-5.90) m/uL Hgb (13.0-17.5) gm/dL Hct (39.0-53.0) % MCV (80.0-100.0) fL MCH (25.0-35.0) pg MCHC (31.0-37.0) g/dL RDW (11.5-15.5) % Plt Count (150-450) k/uL Neutrophils % % Lymphocytes % % Monocytes % % Eosinophils % % Basophils % % Neutrophils # (1.3-7.7) k/uL Lymphocytes # (1.0-4.8) k/uL Monocytes # (0-1.0) k/uL Eosinophils # (0-0.7) k/uL Basophils # (0-0.2) k/uL PT (9.0-12.0) sec INR (<1.2) APTT (22.0-30.0) sec Sample Site rrad ABG pH 7.43 (7.35-7.45) ABG pCO2 32 L (35-45) mmHg ABG pO2 256 H (83-108) mmHg ABG HCO3 21 (21-25) mmol/L ABG Total CO2 22 (19-24) mmol/L ABG O2 Saturation 99.5 H (94-97) % ABG Base Excess -2.9 mmol/L Marco Test Yes FiO2 100 % Sodium (137-145) mmol/L Potassium (3.5-5.1) mmol/L Chloride (98-107) mmol/L Carbon Dioxide (22-30) mmol/L Anion Gap mmol/L BUN (9-20) mg/dL Creatinine (0.66-1.25) mg/dL Est GFR (CKD-EPI)AfAm (>60 ml/min/1.73 sqM) Est GFR (CKD-EPI)NonAf (>60 ml/min/1.73 sqM) Glucose (74-99) mg/dL POC Glucose (mg/dL) (75-99) mg/dL POC Glu Block Greaser ID Plasma Lactic Acid Howard (0.7-2.0) mmol/L Calcium (8.4-10.2) mg/dL Total Bilirubin (0.2-1.3) mg/dL AST (17-59) U/L ALT (21-72) U/L Alkaline Phosphatase (38-126) U/L Total Creatine Kinase (55-170) U/L CK-MB (CK-2) (0.0-2.4) ng/mL CK-MB (CK-2) Rel Index Troponin I (0.000-0.034) ng/mL Total Protein (6.3-8.2) g/dL Albumin (3.5-5.0) g/dL Amylase (30-110) U/L Lipase (23-300) U/L Urine Color Urine Appearance (Clear) Urine pH (5.0-8.0) Ur Specific [place] (1.001-1.035) Urine Protein (Negative) Urine Glucose (UA) (Negative) Urine Ketones (Negative) Urine Blood (Negative) Urine Nitrite (Negative) Urine Bilirubin (Negative) Urine Urobilinogen (<2.0) mg/dL Ur Leukocyte Esterase (Negative) Urine RBC (0-5) /hpf Urine WBC (0-5) /hpf Urine Mucus (None) /hpf Urine Opiates Screen (NotDetected) Ur Oxycodone Screen (NotDetected) Urine Methadone Screen (NotDetected) Ur Propoxyphene Screen (NotDetected) Ur Barbiturates Screen (NotDetected) U Tricyclic Antidepress (NotDetected) Ur Phencyclidine Scrn (NotDetected) Ur Amphetamines Screen (NotDetected) U Methamphetamines Scrn (NotDetected) U Benzodiazepines Scrn (NotDetected) Urine Cocaine Screen (NotDetected) U Marijuana (THC) Screen (NotDetected) Serum Alcohol mg/dL Blood Type Blood Type Recheck Antibody Screen Transfuse Plasma Spec Expiration Date Critical Care Time Critical Care Time: Yes Total Critical Care Time: 45 Disposition Clinical Impression: Subarachnoid hemorrhage, Subdural hemorrhage, Intraparenchymal hemorrhage of brain Disposition: OTHER INSTITUTION NOT DEFINED Referrals: Ganesh Cota Jr, DO [Primary Care Provider] - 1-2 days Time of Disposition: 23:38 - Out of Hospital Transfer - Req. Specs Out of Hospital Transfer - Requested Specifics: Other Emergency Center ([facility])
[2019-03-10] MEDS ORDERED: SUCCINYLCHOLINE CHLORIDE VIAL 200 MG/10 ML VIAL IV STA (21:50)
[2019-03-10] MEDS ORDERED: LORazepam 2 MG/ML INJ IV STA (21:50)
[2019-03-10] MEDS ORDERED: MIDAZOLAM 1 MG/ML 5 ML VIAL IV STA (21:51)
[2019-03-10 21:54] LABS: Basophils % (A) 0 %; Eosinophils # (A) 0.1 k/uL (0-0.7); Eosinophils % (A) 0 %; HCT 45.3 % (39.0-53.0); HGB 14.8 gm/dL (13.0-17.5); Lymphocytes # (A) 1.5 k/uL (1.0-4.8); Lymphocytes % (A) 11 %; MCH 30.5 pg (25.0-35.0); MCHC 32.7 g/dL (31.0-37.0); MCV 93.3 fL (80.0-100.0); Mean Platelet Volume 7.6; Monocytes # (A) 0.8 k/uL (0-1.0); Monocytes % (A) 6 %; Neutrophils # (A) 11.1 k/uL (1.3-7.7); Neutrophils % (A) 82 %; Platelet Count 173 k/uL (150-450); RBC 4.85 m/uL (4.30-5.90); RDW 13.6 % (11.5-15.5); WBC 13.6 k/uL (3.8-10.6)
[2019-03-10 21:54] LABS: Glucose,Whole Blood 133 mg/dL (75-99)
[2019-03-10] MEDS ORDERED: PROPOFOL 1,000 MG in EMPTY BAG 1 BAG IV ONE (22:00)
[2019-03-10 22:07] LABS: Appearance,Urine Clear (Clear); Bilirubin,Urine Negative (Negative); Blood,Urine Small (Negative); Color,Urine Yellow; Glucose,Urine (UA) Trace (Negative); Ketones,Urine 2+ (Negative); Leukocyte Esterase,Urine Negative (Negative); Mucus,Urine Rare /hpf; Nitrite,Urine Negative (Negative); PH, Urine 5.5 (5.0-8.0); Protein,Urine Trace (Negative); RBC,Urine 4 /hpf (0-5); Specific Gravity,Urine 1.025 (1.001-1.035); Urobilinogen,Urine <2.0 mg/dL (<2.0); WBC,Urine 1 /hpf (0-5)
[2019-03-10 22:09] LABS: INR 2.2 (<1.2); Partial Thromboplastin Time 31.6 sec (22.0-30.0); Prothrombin Time 21.7 sec (9.0-12.0)
[2019-03-10 22:15] LABS: ALT 20 U/L (21-72); AST 38 U/L (17-59); Albumin 4.2 g/dL (3.5-5.0); Alcohol <10 mg/dL; Alkaline Phosphatase 118 U/L (38-126); Amylase 43 U/L (30-110); Anion Gap 16 mmol/L; Blood Urea Nitrogen 17 mg/dL (9-20); Calcium 9.2 mg/dL (8.4-10.2); Carbon Dioxide 17 mmol/L (22-30); Chloride 105 mmol/L (98-107); Glucose 139 mg/dL (74-99); Lipase 76 U/L (23-300); Sodium 138 mmol/L (137-145); Total Bilirubin 1.1 mg/dL (0.2-1.3); Total Protein 7.3 g/dL (6.3-8.2)
[2019-03-10 22:18] LABS: Amphetamine Screen,Urine Not Detected (NotDetected); Barbiturate Screen,Urine Not Detected (NotDetected); Benzodiazepines Screen,Urine Not Detected (NotDetected); Cocaine Screen,Urine Not Detected (NotDetected); Methadone Screen, Urine Not Detected (NotDetected); Opiate Screen,Urine Not Detected (NotDetected); Oxycodone Screen, Urine Not Detected (NotDetected); Phencyclidine Screen,Urine Not Detected (NotDetected); Tricyclic Antidepressant,Urine Not Detected (NotDetected); Urn Cannabinoid Scrn Detected (NotDetected)
[2019-03-10] MEDS ORDERED: PHYTONADIONE 10 MG in SODIUM CHLORIDE 0.9% 50 ML IVPB STA (22:19)
[2019-03-10] MEDS ORDERED: levETIRAcetam IV 1,000 MG in SALINE 1 100ML.BAG IVPB STA (22:28)
[2019-03-10 22:30] LABS: Creatine Kinase MB 1.6 ng/mL (0.0-2.4)
--- NOTE | 2019-03-10 22:32 | XR ---
EXAM: XR Chest, 1 View CLINICAL HISTORY: Reason: trauma TECHNIQUE: Frontal view of the chest. COMPARISON: Chest x-ray 07/14/2018 FINDINGS: Lungs: Low lung volumes with increased interstitial opacities and bronchovascular markings likely reflecting hypoventilatory changes. Scattered subsegmental atelectasis. No focal consolidations. Pleural space: No evidence of pleural effusion. No definite pneumothorax identified. Heart: Heart size is mildly enlarged. Mediastinum: Mediastinal prominence with prominence of thoracic aorta. Bones/joints: Post surgical changes of previous median sternotomy. Evidence of nondisplaced fractures involving the lateral right sixth and seventh ribs. Tubes, lines and devices: Endotracheal tube has its tip approximately 2.8 cm above the chelsey. IMPRESSION: Endotracheal tube has its tip approximately 2.8 cm above the chelsey. Mild cardiomegaly. Mediastinal and thoracic aortic prominence which could be related to aortic tortuosity, but cannot exclude possibility of aortic vascular injury in a patient with history of trauma. Clinical correlation is suggested and CTA chest should be considered for further evaluation. Low lung volumes with pulmonary hypoventilatory changes. No focal consolidations. No definite pneumothorax or pleural effusion. Nondisplaced right rib fractures. <MYCVCSECTION> Critical Value Communications 03/10/19 22:34 Call Doctor Regarding Trauma, called Dr. Rey on 03/10 22: 34 (-04:00)
[2019-03-10] MEDS ORDERED: PANTOPRAZOLE 40 MG/10 ML VIAL IVP STA (22:50)
[2019-03-10] MEDS ORDERED: SODIUM CHLORIDE 0.9% 1,000 ML IV ONE (22:52)
[2019-03-10 22:55] LABS: Troponin I 0.036 ng/mL (0.000-0.034)
[2019-03-10 23:06] LABS: ABG Base Excess -2.9 mmol/L; ABG HCO3 21 mmol/L (21-25); ABG Oxygen Saturation 99.5 % (94-97); ABG PCO2 32 mmHg (35-45); ABG PH 7.43 (7.35-7.45); ABG PO2 256 mmHg (83-108); ABG TCO2 22 mmol/L (19-24)
[2019-03-10] MEDS ORDERED: ACETAMINOPHEN IV (For NPO) 1,000 MG in EMPTY BAG 1 BAG IVPB STA (23:44)
--- NOTE | 2019-03-10 23:44 | CT ---
EXAM: CT Head Without Intravenous Contrast CLINICAL HISTORY: ITS.REASON CT Reason: trauma TECHNIQUE: Axial computed tomography images of the head/brain without intravenous contrast. CTDI is 62.5 mGy and DLP is 1750.4 mGy-cm. This CT exam was performed using one or more of the following dose reduction techniques: automated exposure control, adjustment of the mA and/or kV according to patient size, and/or use of iterative reconstruction technique. COMPARISON: None available FINDINGS: Brain: Extensive multifocal intracranial hemorrhages. Bilateral anterior frontal and bilateral temporal cerebral parenchymal hemorrhages suggesting multifocal hemorrhagic cerebral contusions. Cerebral parenchymal hemorrhages are most prominent about the left temporal and left frontal regions. Largest cerebral parenchymal hematoma involving the left temporal lobe measures approximately 7.2 cm AP by 2.8 cm transverse by 3.5 cm craniocaudal resulting in overall estimated volume of 34.8 cc. Moderate surrounding cerebral edema. Multifocal left frontal cerebral parenchymal hemorrhages with moderate surrounding cerebral edema. There is associated multifocal bilateral subarachnoid hemorrhages. Small left anterior frontal subdural hematoma measuring 4.9 mm in thickness. Minimal anterior parafalcine subdural hemorrhage. Small left tentorial subdural hematoma measuring 4.7 mm in thickness. Minimal subdural hemorrhage along the right tentorium. Ventricles: Mild mass effect and effacement of left lateral ventricle with minimal rightward midline shift of approximately 2 mm. Bones/joints: No definite skull fracture identified. Sinuses: Partial opacification of ethmoid sinuses bilaterally. Mild bilateral frontal and sphenoid sinus mucosal thickening. Bilateral maxillary mucous retention cysts. Mastoid air cells: Mild partial opacification of inferior left mastoid sinuses. IMPRESSION: Extensive multifocal acute intracranial hemorrhages with evidence of bilateral frontal and bilateral temporal hemorrhagic cerebral contusions with associated multifocal bilateral subarachnoid hemorrhage. Small left anterior frontal, parafalcine and bilateral tentorial subdural hematomas as described in body of report. Mild rightward midline shift of approximately 2 mm. Sinus disease. EXAM: CT Cervical Spine Without Intravenous Contrast CLINICAL HISTORY: ITS.REASON CT Reason: trauma TECHNIQUE: Axial computed tomography images of the cervical spine without intravenous contrast. CTDI is 62.5 mGy and DLP is 1750.4 mGy-cm. This CT exam was performed using one or more of the following dose reduction techniques: automated exposure control, adjustment of the mA and/or kV according to patient size, and/or use of iterative reconstruction technique. COMPARISON: None available FINDINGS: Artifacts: Significant motion artifact limiting CT examination. Vertebrae: Reversal of normal cervical lordosis and mild C3-4 anterolisthesis of approximately 3 mm. No obvious acute fracture or dislocation. Advanced multilevel cervical disc disease, spondylosis and facet joint arthropathy. Soft tissues: No abnormal prevertebral soft tissue thickening. IMPRESSION: Significant motion artifact limiting CT examination. No obvious acute cervical fracture or dislocation. <MYCVCSECTION> Critical Value Communications 03/10/19 23:28 Call Doctor Regarding Intracranial Hemorrhage, called Dr. Rey on 03/10 23:28 (-04:00)
--- NOTE | 2019-03-11 00:14 | CT ---
EXAM: CT Chest With Intravenous Contrast CLINICAL HISTORY: ITS.REASON CT Reason: trauma TECHNIQUE: Axial computed tomography images of the chest with intravenous contrast. CTDI is 16.1 mGy and DLP is 1264 mGy-cm. This CT exam was performed using one or more of the following dose reduction techniques: automated exposure control, adjustment of the mA and/or kV according to patient size, and/or use of iterative reconstruction technique. COMPARISON: Chest x-ray 03/10/2019 FINDINGS: Artifacts: Significant motion artifact limiting CT examination. Lungs: Bilateral dependent atelectatic changes. Bibasilar subsegmental atelectasis. No focal pulmonary consolidations. Pleural space: Minimal right pleural effusion. No evidence of pneumothorax. Heart: Heart size is mildly enlarged. Coronary arterial calcifications. No significant pericardial effusion. Bones/joints: Post surgical changes of previous median sternotomy. Lateral right seventh rib fracture suspicious for acute fracture. Multiple old right rib fractures. No evidence of acute thoracic vertebral compression fracture. Vasculature: No thoracic aortic aneurysm. No definite evidence of periaortic or mediastinal hemorrhage/hematoma. Lymph nodes: No pathologically enlarged lymphadenopathy. Tubes, lines and devices: Endotracheal tube has its tip above the chel[place]. IMPRESSION: Endotracheal tube has its tip above the chelsey. Status post previous median sternotomy. Mild cardiomegaly. Coronary arterial calcifications. No thoracic aortic aneurysm. No definite evidence of mediastinal injury or hematoma. Multiple old right rib fractures and probable acute right seventh rib fracture. Minimal right pleural effusion. EXAM: CT Abdomen and Pelvis With Intravenous Contrast CLINICAL HISTORY: ITS.REASON CT Reason: trauma TECHNIQUE: Axial computed tomography images of the abdomen and pelvis with intravenous contrast. CTDI is 16.1 mGy and DLP is 1264 mGy-cm. This CT exam was performed using one or more of the following dose reduction techniques: automated exposure control, adjustment of the mA and/or kV according to patient size, and/or use of iterative reconstruction technique. COMPARISON: None available FINDINGS: Artifacts: Significant motion artifact limiting CT examination. ABDOMEN: Liver: No definite hepatic abnormalities. Gallbladder and bile ducts: No calcified stones. Pancreas: Pancreas is unremarkable. Spleen: Spleen is of normal size. No definite splenic abnormality. Adrenals: No adrenal masses. Kidneys and ureters: Bilateral symmetric renal enhancement. No hydronephrosis or perinephric collection. Stomach and bowel: Moderate gaseous distention of stomach. No evidence of bowel obstruction. No definite pneumoperitoneum. PELVIS: Appendix: No findings to suggest acute appendicitis. Bladder: Stevenson catheter within decompressed urinary bladder. Reproductive: Prostatic enlargement. ABDOMEN and PELVIS: Intraperitoneal space: No evidence of free fluid/hemoperitoneum. Bones/joints: No definite acute pelvic or hip fracture/dislocation. No lumbar vertebral compression fracture. Advanced degenerative changes throughout the lumbar spine. Soft tissues: Small fat-containing umbilical hernia. Vasculature: No abdominal aortic aneurysm. Lymph nodes: No evidence of lymphadenopathy. IMPRESSION: Significant motion artifact limiting CT evaluation. No definite evidence of acute abdominal-pelvic process. <MYCVCSECTION> [employer] 03/11/19 00:24 Verify Receipt Verified receipt with EMMANUEL Fuentes. Report given to Dr. Rey on 03/11 00:23 (-04:00)
--- NOTE | 2019-03-11 00:17 | XR ---
EXAM: XR Pelvis, 1 or 2 Views CLINICAL HISTORY: ITS.REASON XR Reason: Trauma TECHNIQUE: Frontal view of the pelvis. COMPARISON: None available FINDINGS: Bones/joints: No acute fracture or dislocation identified. Degenerative changes involve the lower lumbar spine. IMPRESSION: No evidence of acute fracture or dislocation.
[2019-03-11 03:28] VITALS: BP 158/85; PULSE 93; RESP 28; TEMP 101
== END 2019-03-11 00:35 | disposition short-term general hospital (02) ==
LOC: EC 21:23
DX: S06.6X9A Traumatic subarachnoid hemorrhage with loss of consciousness of unspecified duration, initial encounter (principal); S06.5X9A Traumatic subdural hemorrhage with loss of consciousness of unspecified duration, initial encounter; S06.359A Traumatic hemorrhage of left cerebrum with loss of consciousness of unspecified duration, initial encounter; S06.349A Traumatic hemorrhage of right cerebrum with loss of consciousness of unspecified duration, initial encounter; R00.0 Tachycardia, unspecified; I48.91 Unspecified atrial fibrillation; I25.119 Atherosclerotic heart disease of native coronary artery with unspecified angina pectoris; E78.5 Hyperlipidemia, unspecified; I10 Essential (primary) hypertension; I25.2 Old myocardial infarction; N40.0 Benign prostatic hyperplasia without lower urinary tract symptoms; M17.12 Unilateral primary osteoarthritis, left knee; Z87.891 Personal history of nicotine dependence; Z79.01 Long term (current) use of anticoagulants; Z79.51 Long term (current) use of inhaled steroids; Z79.82 Long term (current) use of aspirin; Z79.899 Other long term (current) drug therapy; Z86.711 Personal history of pulmonary embolism; Z86.718 Personal history of other venous thrombosis and embolism; Z95.1 Presence of aortocoronary bypass graft; Z95.818 Presence of other cardiac implants and grafts; Z96.652 Presence of left artificial knee joint; W10.9XXA Fall (on) (from) unspecified stairs and steps, initial encounter; Y92.009 Unspecified place in unspecified non-institutional (private) residence as the place of occurrence of the external cause
CPT/HCPCS: 99291; 31500; 36415; 36600; 94002; 93005; 86900; 86901; 80053; 82150; 82550; 82553; 82805; 83605; 83690; 84484; 85025; 85610; 85730; 86850; 81001; 80306; 87070; 87205; 87077; 87186; 72170; 71045; 72125; 70450; 71260; 74177; 96365; 96367; 96375 ×3; 96361 ×2; L0120; P9059; G0480; J0330; J2060; J3430; J2250; J0131; J2704; J1953; C9113; Q9967; 80320